=== PATIENT | male | born 1980 | race Caucasian/White ===

== ENCOUNTER 2018-08-17 09:27 | Outpatient (CLI) | payer OTHER, MEDICAID | END 2018-08-17 09:28 | disposition critical access hospital (66) | LOC: EMS 09:27 | PROVIDERS: ATTEND Surgery | DX: R09.89 Other specified symptoms and signs involving the circulatory and respiratory systems (principal) | CPT/HCPCS: A0425; A0427 ==

== ENCOUNTER 2018-08-17 09:45 | Emergency (ER) | payer OTHER, MEDICAID ==
[2018-08-17 10:14] LABS: BASOPHILS % (AUTO) 0.5 %; EOSINOPHILS # (AUTO) 0.3 10^3/uL (0.0-0.7); EOSINOPHILS % (AUTO) 4.9 %; HGB - HEMOGLOBIN 14.1 g/dL (14.0-18.0); LYMPHOCYTES # (AUTO) 1.6 10^3/uL (1.5-3.5); LYMPHOCYTES % (AUTO) 22.7 %; MEAN CORPUSCULAR HEMOGLOBIN 32.6 pg (27.0-31.0); MEAN CORPUSCULAR HGB CONC 35.2 g/dL (32.0-36.0); MEAN CORPUSCULAR VOLUME 92.8 fL (80.0-94.0); MONOCYTES # (AUTO) 0.6 10^3/uL (0.0-1.0); MONOCYTES % (AUTO) 8.9 %; NEUTROPHILS # (AUTO) 4.3 10^3/uL (1.5-6.6); PLT - PLATELET COUNT 244 10^3/uL (130-450); RED BLOOD COUNT 4.31 10^6/uL (4.70-6.10); RED CELL DISTRIBUTION WIDTH 12.8 % (12.0-15.0); WHITE BLOOD COUNT 6.9 x10^3/uL (4.8-10.8)
[2018-08-17 10:24] LABS: ALBUMIN 4.1 g/dL (3.2-5.5); ALBUMIN/GLOBULIN RATIO 1.4 (1.0-2.2); BILIRUBIN,TOTAL 0.9 mg/dL (0.2-1.0); CALCIUM 8.8 mg/dL (8.5-10.3); CREATININE 0.9 mg/dL (0.6-1.2); TOTAL PROTEIN 7.1 g/dL (6.7-8.2)
[2018-08-17] MEDS ORDERED: LISINOPRIL 5 MG TABLET PO STA (10:30)
--- NOTE | 2018-08-17 10:33 | ED Physician Documentation ---
History of Present Illness - Stated complaint Stated Complaint: HIGH BLOOD PRESSURE - Chief complaint Chief Complaint: Cardiac - History obtained from History obtained from: Patient - History of Present Illness Timing: How many weeks ago (2) - Additonal information Additional information: 37-year-old male has had issue with his blood pressure being elevated in his doctor's office and he has been able to control this by controlling his breathing. This past 2 weeks he has not been able to get his blood pressure under control and he has been experiencing some palpitations in his chest that he can feel his heart beating. He denies any pain in his chest. He states that he has been measuring his blood pressures and has had diastolics in the 110 range on a regular basis. This morning his blood pressure was elevated and he took carvedilol 6.25 mg and when he arrived to work had his blood pressure checked it was elevated and the people at the [employer] insisted he come to the emergency department for evaluation. The patient denies excessive salt load does state that he has been trying to exercise with walking and he denies any excessive use of alcohol. Review of Systems Constitutional: denies: Fever Eyes: denies: Decreased vision Ears: denies: Ear pain Nose: denies: Congestion Throat: denies: Sore throat Cardiac: reports: Palpitations. denies: Chest pain / pressure Respiratory: denies: Dyspnea, Cough GI: denies: Abdominal Pain, Nausea, Vomiting : denies: Dysuria, Frequency Skin: denies: Rash Musculoskeletal: denies: Neck pain, Back pain PD PAST MEDICAL HISTORY - Past Surgical History HEENT: Tonsil/Adenoidectomy - Present Medications Home Medications: Ambulatory Orders Medication Instructions Recorded Confirmed Carvedilol 08/17/18 Lisinopril 10 mg PO DAILY #20 tablet 08/17/18 - Allergies Allergies/Adverse Reactions: Allergies Allergy/AdvReac Type Severity Reaction Status Date / Time Sulfa (Sulfonamide Allergy Rash Verified 08/17/18 09:52 Antibiotics) - Social History Does the pt smoke?: No Smoking Status: Never smoker Does the pt drink ETOH?: Yes Does the pt have substance abuse?: No - Immunizations Immunizations are current?: Yes PD ED PE NORMAL - Vitals Vital signs reviewed: Yes (hypertension marked diastolic and systolic ) - General General: Alert and oriented X 3, No acute distress, Well developed/nourished - HEENT HEENT: Atraumatic, PERRL, EOMI - Neck Neck: Supple, no meningeal sign, No bony TTP - Cardiac Cardiac: RRR, No murmur - Respiratory Respiratory: No respiratory distress, Clear bilaterally - Abdomen Abdomen: Soft, Non tender - Back Back: No CVA TTP, No spinal TTP - Derm Derm: Normal color, Warm and dry, No rash - Extremities Extremities: No deformity, No edema - Neuro Neuro: Alert and oriented X 3, steward/stewardess tourist class 2-12 intact, No motor deficit, No sensory deficit, Normal speech Eye Opening: Spontaneous Motor: Obeys Commands Verbal: Oriented GCS Score: 15 - Psych Psych: Normal mood, Normal affect Results - Vitals Vitals: Vital Signs - 24 hr 08/17/18 08/17/18 09:45 10:03 Temperature 37.1 C Heart Rate 69 77 Respiratory 15 15 Rate Blood Pressure 186/128 H 178/108 H O2 Saturation 100 99 Oxygen O2 Source Room air - EKG (time done) 1005 Rate: Rate (enter#) (63) QRS: LVH Ischemia: Normal ST segments Compare to prior EKG: Old EKG unavailable Computer interpretation: Agree with computer - Labs Labs: Laboratory Tests 08/17/18 08/17/18 08/17/18 10:09 10:09 10:09 WBC 6.9 RBC 4.31 L Hgb 14.1 Hct 40.0 L MCV 92.8 MCH 32.6 H MCHC 35.2 RDW 12.8 Plt Count 244 MPV 8.0 Neut # (Auto) 4.3 Lymph # (Auto) 1.6 [place] # (Auto) 0.6 Eos # (Auto) 0.3 Baso # (Auto) 0.0 Absolute Nucleated RBC 0.00 Nucleated RBC % 0.0 Sodium 136 Potassium 4.3 Chloride 105 Carbon Dioxide 24 Anion Gap 7.0 BUN 17 Creatinine 0.9 Estimated GFR (MDRD) 96 Glucose 112 H Calcium 8.8 Total Bilirubin 0.9 AST 24 ALT 30 Alkaline Phosphatase 40 L Troponin I < 0.04 Total Protein 7.1 Albumin 4.1 Globulin 3.0 Albumin/Globulin Ratio 1.4 Lipase 30 - Rads (name of study) 2 veiw chest Radiology: Prelim report reviewed (Impression: Normal two-view chest radiography.), EMP read indepedently, See rad report Procedures - IVC sono (time) 1025 Bedside IVC sono: IVC measures (cm) (1.47), Euvolemia PD MEDICAL DECISION MAKING - ED course Complexity details: reviewed results, re-evaluated patient, considered differential, d/w patient ED course: 37 y/o male with hypertension is hypertensive this morning and symptomatic. He has normal volume and Lisinopril is administered. - Sepsis Event Vital Signs: Vital Signs - 24 hr 08/17/18 08/17/18 09:45 10:03 Temperature 37.1 C Heart Rate 69 77 Respiratory 15 15 Rate Blood Pressure 186/128 H 178/108 H O2 Saturation 100 99 Oxygen O2 Source Room air Departure - Departure Disposition: 01 Home, Self Care Clinical Impression: Hypertension Qualifiers: Hypertension type: essential hypertension Qualified Code(s): I10 - Essential (primary) hypertension Condition: Stable Instructions: ED Hypertension New Begin Tx Follow-Up: [facility] [Provider Group] Prescriptions: Lisinopril 10 mg PO DAILY #20 tablet
--- NOTE | 2018-08-17 10:52 | XRAY Report ---
Reason: palpitations, HTN Procedure Date: 08/17/2018 Accession Number: [id number] / [id number] Procedure: XR - Chest 2 View X-Ray CPT Code: 49560 FULL RESULT: EXAM: CHEST RADIOGRAPHY EXAM DATE: 08/17/2018 10:35 AM. CLINICAL HISTORY: Palpitations, HTN. COMPARISON: None. TECHNIQUE: 2 views. FINDINGS: Lungs/Pleura: No focal opacities evident. No pleural effusion. No pneumothorax. Normal volumes. Mediastinum: Heart and mediastinal contours are unremarkable. Other: None. IMPRESSION: Normal 2-view chest radiography. RADIA
[2018-08-17 11:50] VITALS: BP 166/106
== END 2018-08-17 11:50 | disposition home or self-care (01) ==
LOC: ED 09:45
DX: I10 Essential (primary) hypertension (principal)
CPT/HCPCS: 36415; 71046; 80053; 83690; 84484; 85025; 93005; 99284; A9270

== ENCOUNTER 2021-05-24 18:12 | Emergency (ER) | payer OTHER ==
--- NOTE | 2021-05-24 19:49 | XRAY Report ---
PROCEDURE: Shoulder 3 View RT INDICATIONS: injury struck versus trailer TECHNIQUE: 3 views of the shoulder were acquired. COMPARISON: None. FINDINGS: Bones: No acute fractures or dislocations. No suspicious bony lesions. Visualized ribs appear inta ct. Soft tissues: No suspicious soft tissue calcifications. IMPRESSION: Right shoulder without acute fracture or dislocation. If there is persistent clinical concern for a radiographically occult fracture, recommend immobilizat ion and repeat imaging in 10 to 14 days. Reviewed by: Ancelmo Barrett MD on 05/24/2021 7:48 PM PDT Approved by: Ancelmo Barrett MD on 05/24/2021 7:48 PM PDT Station ID: [id number]
--- NOTE | 2021-05-24 20:10 | ED Physician Documentation ---
History of Present Illness - Stated complaint Stated Complaint: RT ARM INJURY - Chief complaint Chief Complaint: Trauma Ext - Additonal information Additional information: 40-year-old male presents the ER with acute right shoulder pain. 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 One of the pressure valves became an released and when he unhooked the trailer it swung his arm back forcefully. Initially he did not think much of it but about 15 minutes later he began having a deep ache in his right shoulder radiating to the hand. No history of previous injury. Now pain significantly limits movement. No deformity. He is right-hand dominant. This is a labor and industries claim. Review of Systems Constitutional: reports: Reviewed and negative Nose: reports: Reviewed and negative Throat: reports: Reviewed and negative Cardiac: reports: Reviewed and negative Respiratory: reports: Reviewed and negative GI: reports: Reviewed and negative : reports: Reviewed and negative Musculoskeletal: reports: Extremity pain (Right shoulder) PD PAST MEDICAL HISTORY - Past Surgical History HEENT: Tonsil/Adenoidectomy - Present Medications Home Medications: Ambulatory Orders Medication Instructions Recorded Confirmed carvediloL [Carvedilol] 08/17/18 lisinopriL [Lisinopril] 10 mg PO DAILY #20 tablet 08/17/18 HYDROcod/ACETAM 5/325 [[place] 5/325] 1 tablet PO BID PRN #20 tablet 05/24/21 Ibuprofen [Motrin] 600 mg PO Q6H PRN #30 tab 05/24/21 - Allergies Allergies/Adverse Reactions: Allergies Allergy/AdvReac Type Severity Reaction Status Date / Time Sulfa (Sulfonamide Allergy Rash Verified 05/24/21 18:30 Antibiotics) - Social History Does the pt smoke?: No Smoking Status: Never smoker Does the pt drink ETOH?: Yes Does the pt have substance abuse?: No - Immunizations Immunizations are current?: Yes PD ED PE EXPANDED - General General: Alert, In Pain - Extremities Extremities: Right shoulder (tenderness with palpation right proximal biceps. Patient has a positive drop arm on the right side as well as a positive Jurgenson's. Patient able to abduct the arm to 90 degrees.) Results - Vitals Vitals: Vital Signs - 24 hr 05/24/21 05/24/21 18:30 19:36 Temperature 36.8 C 99.6 C H Heart Rate 63 75 Respiratory 16 18 Rate Blood Pressure 144/87 H 145/85 H O2 Saturation 100 99 Oxygen O2 Source Room air - Rads (name of study) right shoulder Radiology: Final report received (No acute fracture or dislocation.) PD MEDICAL DECISION MAKING - ED course Complexity details: reviewed results, re-evaluated patient, d/w patient ED course: 40-year-old male presents to the ER with acute right shoulder pain after his arm was forcefully extended backwards when a pressurized tanker trailer opened up. No obvious fracture but the exam is most consistent with a rotator cuff tear. Patient will be placed in a sling given ibuprofen and a limited amount of narcotic. 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 Will recommend follow-up with orthopedics. Emergent return precautions discussed. I am prescribing a short course of short-acting opioid pain medication for this patient. I have reviewed the patients JUNIOR STAFF ACCOUNTANT and no concerning findings were noted. I have discussed that the opioids are for short term therapy only, and will not be refilled from the ED. Departure - Departure Disposition: 01 Home, Self Care Clinical Impression: Right rotator cuff tendinitis Condition: Stable Record reviewed to determine appropriate education?: Yes Instructions: Rotator Cuff Injury Follow-Up: [facility] [Provider Group] Prescriptions: Ibuprofen [Motrin] 600 mg PO Q6H PRN #30 tab PRN Reason: Pain HYDROcod/ACETAM 5/325 [[place] 5/325] 1 tablet PO BID PRN #20 tablet PRN Reason: Pain Comments: Darrell you were seen in the ER today for right shoulder pain. The x-ray does not show any obvious fractures but your exam is consistent with a rotator cuff tear. Most rotator cuff injuries will resolve by simply resting the arm taking appropriate ibuprofen and pain medication. I would like you to schedule follow- up with your primary care provider or the orthopedic surgeons for reevaluation within 1 week. 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 It is important that you follow-up with your primary care provider, the orthopedic surgeon or a walk-in provider in 7 days. If your symptoms are not improving a longer release from work will need to be written. However until then you are not cleared for return to duty until the 21st at the earliest. I do recommend that you ice the shoulder for 10 minutes 3 times a day and take ibuprofen with food for pain. For severe pain I have prescribed a very limited amount of hydrocodone. I am prescribing a short course of narcotic pain medication for you. These are potentially dangerous and addictive medications that should be used carefully. These medications may constipate you. Take an zvvz-gjh-kkfuxar stool softener (docusate) twice daily with plenty of water while taking these medications. If you go 24 hours without a bowel movement, take [id number] miralax, per package instructions. Do not drink or drive while taking these medications. If you received narcotic or sedating medications while in the emergency department, do not drive for 24 hours. Store this medication in a safe, secure place and out of reach of children. It is a violation of federal law to give or sell this medication to another person or to use in a manner other than prescribed. The ED will not refill narcotic prescriptions, including prescriptions lost or stolen. To dispose of unwanted medications: 1. [facility] at [address] in [place] has a medication drop box. They accept prescription medications (in pill form) Sunday through Sunday 9:00 a.m. to 5:00 p.m. 2. The [facility] [employer] accepts prescription medications (in pill form only) for disposal year round. Call for more information. 3. Contact the [facility] for the next COUNT INCLUDES THE [facility] sponsored prescription drug collection event. , [phone], or [phone]; Note that many narcotic pain relievers also contain Tylenol/acetaminophen. Please ensure that your total dose of acetaminophen from all sources does not exceed 3 g (3000 mg) per day.
[2021-05-24] MEDS: IBUPROFEN 600 MG TABLET PO STA (20:13)
[2021-05-24] MEDS: HYDROmorphone 1 MG/ML CARPUJECT IM STA (20:13)
[2021-05-24 20:40] VITALS: BP 146/84
== END 2021-05-24 20:40 | disposition home or self-care (01) ==
LOC: ED 18:12
DX: S46.011A Strain of muscle(s) and tendon(s) of the rotator cuff of right shoulder, initial encounter (principal); W20.8XXA Other cause of strike by thrown, projected or falling object, initial encounter; Y93.89 Activity, other specified; Y99.0 Civilian activity done for income or pay
CPT/HCPCS: 1040M; 73030; 96372; 99283; A9270; J1170

== ENCOUNTER 2022-02-28 15:56 | Emergency (ER) | payer MEDICAID, OTHER ==
[2022-02-28 16:30] LABS: BASOPHILS % (AUTO) 0.4 %; EOSINOPHILS # (AUTO) 0.2 10^3/uL (0.0-0.7); EOSINOPHILS % (AUTO) 2.8 %; HCT - HEMATOCRIT 44.9 % (42.0-52.0); HGB - HEMOGLOBIN 15.9 g/dL (14.0-18.0); LYMPHOCYTES # (AUTO) 1.3 10^3/uL (1.5-3.5); LYMPHOCYTES % (AUTO) 19.5 %; MEAN CORPUSCULAR HEMOGLOBIN 32.7 pg (27.0-31.0); MEAN CORPUSCULAR HGB CONC 35.4 g/dL (32.0-36.0); MEAN CORPUSCULAR VOLUME 92.4 fL (80.0-94.0); MEAN PLATELET VOLUME 9.6 fL (7.4-11.4); MONOCYTES # (AUTO) 0.9 10^3/uL (0.0-1.0); MONOCYTES % (AUTO) 13.9 %; NEUTROPHILS # (AUTO) 4.2 10^3/uL (1.5-6.6); NEUTROPHILS % (AUTO) 63.1 %; PLT - PLATELET COUNT 238 10^3/uL (130-450); RED BLOOD COUNT 4.86 10^6/uL (4.70-6.10); RED CELL DISTRIBUTION WIDTH 12.1 % (12.0-15.0); WHITE BLOOD COUNT 6.7 x10^3/uL (4.8-10.8)
[2022-02-28 16:31] LABS: BILIRUBIN,URINE NEGATIVE (NEGATIVE); GLUCOSE, URINE (UA) NEGATIVE (NEGATIVE); KETONES,URINE (UA) NEGATIVE (NEGATIVE); LEUKOCYTE ESTERASE, URINE NEGATIVE (NEGATIVE); NITRITE,URINE NEGATIVE (NEGATIVE); OCCULT BLOOD,URINE NEGATIVE (NEGATIVE); PROTEIN,URINE NEGATIVE (NEGATIVE); UROBILINOGEN,URINE 0.2 (NORMAL) E.U./dL (NORMAL)
[2022-02-28 16:32] LABS: CLARITY,URINE CLEAR (CLEAR)
[2022-02-28 16:43] LABS: ALBUMIN 4.6 g/dL (3.2-5.5); ALBUMIN/GLOBULIN RATIO 1.4 (1.0-2.2); CALCIUM 9.4 mg/dL (8.5-10.3); CREATININE 1.2 mg/dL (0.6-1.2); POTASSIUM 4.1 mmol/L (3.5-5.0)
--- NOTE | 2022-02-28 18:07 | ED Physician Documentation ---
PD HPI NVD - Stated complaint Stated Complaint: ABD PX,DIARRHEA - Chief complaint Chief Complaint: Abd Pain - History obtained from History obtained from: Patient - History of Present Illness Timing - onset: How many days ago (3) Timing - duration: Days (3) Timing - details: Abrupt onset (Initially with diarrhea's multiple times with watery stool and then development of upper to left abdominal pain that has persisted and become severe in waves.), Still present Associated symptoms: Abdominal pain, Loss of appetite (pain with eating), Other (diarrhea. Nausea without vomiting.). No: Fever, Dysuria Contributing factors: No: Sick contact, Bad food, Travel, Recent antibiotics Improved by: No: Eating, BM Worsened by: Eating Similar symptoms before: Has not had sx before Recently seen: Not recently seen Review of Systems Constitutional: denies: Fever, Chills Nose: denies: Rhinorrhea / runny nose, Congestion Throat: denies: Sore throat Cardiac: denies: Chest pain / pressure Respiratory: denies: Cough GI: reports: Abdominal Pain, Nausea, Diarrhea (frequent and watery). denies: Vomiting, Constipation, Bloody / black stool : denies: Dysuria Musculoskeletal: denies: Back pain Neurologic: reports: Generalized weakness. denies: Focal weakness, Numbness, Near syncope PD PAST MEDICAL HISTORY - Past Medical History Cardiovascular: None Respiratory: None Endocrine/Autoimmune: None - Past Surgical History Past Surgical History: Yes HEENT: Tonsil/Adenoidectomy - Present Medications Home Medications: Ambulatory Orders Medication Instructions Recorded Confirmed Ibuprofen [Motrin] 600 mg PO Q6H PRN #30 tab 05/24/21 02/28/22 Amlodipine Besylate [Norvasc] 10 mg PO DAILY 02/28/22 02/28/22 Escitalopram [Lexapro] 15 mg PO DAILY 02/28/22 02/28/22 Famotidine 20 mg PO DAILY 02/28/22 02/28/22 HYDROcod/ACETAM 5/325 [[place] 5/325] 1 ea PO Q6H PRN #14 tablet 02/28/22 Lisinopril [Zestril] 40 mg PO DAILY 02/28/22 02/28/22 Ondansetron Odt [Zofran] 4 mg TL Q6H PRN #10 tablet 02/28/22 - Allergies Allergies/Adverse Reactions: Allergies Allergy/AdvReac Type Severity Reaction Status Date / Time Sulfa (Sulfonamide Allergy Rash Verified 02/28/22 16:05 Antibiotics) - Social History Does the pt smoke?: No Smoking Status: Never smoker Does the pt drink ETOH?: Yes Does the pt have substance abuse?: No - Immunizations Immunizations are current?: Yes PD ED PE NORMAL - Vitals Vital signs reviewed: Yes - General General: Alert and oriented X 3, Well developed/nourished, Other (He appears in considerable distress and worse in waves.) - Neck Neck: Supple, no meningeal sign, No adenopathy - Cardiac Cardiac: RRR, No murmur - Respiratory Respiratory: Clear bilaterally - Abdomen Abdomen: Soft, Non distended, No organomegaly, Other (Tender in the epigastric to left upper quadrant area with local guarding and percussion tenderness. Lower abdomen not tender. No rebound.). No: Normal bowel sounds (decreased) - Male Male : Deferred - Rectal Rectal: Deferred - Back Back: No CVA TTP - Derm Derm: Normal color, Warm and dry - Neuro Neuro: Alert and oriented X 3, No motor deficit, Normal speech Results - Vitals Vitals: Vital Signs - 24 hr 02/28/22 02/28/22 02/28/22 16:06 16:11 20:11 Temperature 37.2 C 37.2 C 36.9 C Heart Rate 83 83 69 Respiratory 20 20 22 Rate Blood Pressure 163/103 H 163/103 H 168/106 H O2 Saturation 99 94 98 02/28/22 22:00 Temperature Heart Rate 86 Respiratory 16 Rate Blood Pressure 166/108 H O2 Saturation 98 Oxygen O2 Source Room air - Labs Labs: Laboratory Tests 02/28/22 02/28/22 02/28/22 16:20 16:23 16:23 WBC 6.7 RBC 4.86 Hgb 15.9 Hct 44.9 MCV 92.4 MCH 32.7 H MCHC 35.4 RDW 12.1 Plt Count 238 MPV 9.6 Neut # (Auto) 4.2 Lymph # (Auto) 1.3 L [place] # (Auto) 0.9 Eos # (Auto) 0.2 Baso # (Auto) 0.0 Absolute Nucleated RBC 0.00 Nucleated RBC % 0.0 Sodium 135 Potassium 4.1 Chloride 101 Carbon Dioxide 24 Anion Gap 10.0 BUN 13 Creatinine 1.2 Estimated GFR (MDRD) 67 L Glucose 100 Calcium 9.4 Total Bilirubin 1.0 AST 21 ALT 23 Alkaline Phosphatase 42 Total Protein 8.0 Albumin 4.6 Globulin 3.4 Albumin/Globulin Ratio 1.4 Lipase 29 Urine Color YELLOW Urine Clarity CLEAR Urine pH 6.0 Ur Specific [place] 1.020 Urine Protein NEGATIVE Urine Glucose (UA) NEGATIVE Urine Ketones NEGATIVE Urine Occult Blood NEGATIVE Urine Nitrite NEGATIVE Urine Bilirubin NEGATIVE Urine Urobilinogen 0.2 (NORMAL) Ur Leukocyte Esterase NEGATIVE Ur Microscopic Review NOT INDICATED Urine Culture Comments NOT INDICATED PD MEDICAL DECISION MAKING - ED course Complexity details: reviewed results (CT showoing ileitis. No obstruction. ), re-evaluated patient (Lessened pain but still hurting quite a bit with sips of water. No vomiting but still intractable pain. Has had several doses of pain medicine. Can talk with hospitalist. ), considered differential (likely viral GE but having considerable pain, so concern for other process, diverticulitis, SBO, abscess, etc.), d/w customer service sales consultant (Consulted with Dr. Carter Romano who felt the patient did not meet admission criteria even on grounds of intractable pain and poor oral intake. We will see how he does the patient does with further IV fluids and medication.) Departure - Departure Disposition: 01 Home, Self Care Clinical Impression: Ileitis Diarrhea Qualifiers: Diarrhea type: presumed infectious Qualified Code(s): R19.7 - Diarrhea, unspecified Abdominal pain Qualifiers: Abdominal location: upper abdomen, unspecified Qualified Code(s): R10.10 - Upper abdominal pain, unspecified Condition: Stable Record reviewed to determine appropriate education?: Yes Instructions: ED Diet Vomiting Diarrhea Follow-Up: SHANT RAUSCH DO [Primary Care Provider] - Prescriptions: HYDROcod/ACETAM 5/325 [[place] 5/325] 1 ea PO Q6H PRN #14 tablet PRN Reason: Pain Ondansetron Odt [Zofran] 4 mg TL Q6H PRN #10 tablet PRN Reason: Nausea / Vomiting Comments: Small frequent fluids and electrolyte solution such as Gatorade or so. Use ond ansetron if needed for nausea. Tylenol every 4-6 hours if needed for pain or hydrocodone if needed for worse pain. You can try Imodium for diarrhea. Our hospitalist did not feel that you met admission criteria so we will try seeing how you do at home. Use the above medications. Return if not improving well in the next 12 to 24 hours. Discharge Date/Time: 02/28/22 22:07
[2022-02-28] MEDS ORDERED: KETOROLAC 30 MG/ML VIAL IVP STA (18:18)
[2022-02-28] MEDS ORDERED: SODIUM CHLORIDE 0.9% 1,000 ML IV STA ×2 (18:18→19:40)
[2022-02-28] MEDS ORDERED: HYDROmorphone 1 MG/ML CARPUJECT IVP STA ×2 (18:18→19:25)
[2022-02-28] MEDS ORDERED: ONDANSETRON 4 MG/2 ML VIAL IVP STA (18:18)
[2022-02-28] MEDS ORDERED: IOVERSOL 320 100 ML VIAL IVP ONE ×2 (18:47→19:01)
--- NOTE | 2022-02-28 19:15 | CT Report ---
PROCEDURE: Abdomen/Pelvis W INDICATIONS: left upper abd pain 3 days, diarrhea CONTRAST: IV CONTRAST: Optiray 320 ml: 100 PO CONTRAST: *NO PO CONTRAST TECHNIQUE: After the administration of intravenous contrast, 5 mm thick sections acquired from the diaphragms to the symphysis. 5 mm thick coronal and sagittal reformats were acquired. For radiation dose reducti on, the following was used: automated exposure control, adjustment of mA and/or kV according to ramiro ent size. COMPARISON: None FINDINGS: Image quality: Excellent. ABDOMEN: Lung bases: Lung bases are clear. Heart size is normal. Solid organs: Liver and spleen are normal in size and enhancement. Gallbladder is unremarkable. Bi liary system is non dilated. Pancreas enhances normally. No adrenal nodules. Kidneys demonstrate n ormal size and enhancement, without hydronephrosis. Peritoneum and bowel: There is thickening and edema of loops of ileum. There is mild sigmoid divertic ulosis. No other inflamed loops of bowel are identified. Nodes and vessels: No retroperitoneal or me senteric adenopathy by size criteria. Aorta and inferior vena cava are normal in size. Miscellaneous: No ventral hernias. PELVIS: Genitourinary: Mild diffuse bladder wall thickening. Miscellaneous: No inguinal hernias or adenopathy. Bones: No suspicious bony lesions. No vertebral body compression fractures. IMPRESSION: 1. Multiple thickened, mildly edematous loops of ileum, consistent with ileitis. In this age group, i nfectious or inflammatory ileitis is more likely than ischemic ileitis. 2. Mild diffuse bladder wall thickening, nonspecific. Reviewed by: Rohit Keita MD on 02/28/2022 7:13 PM PDT Approved by: Rohit Keita MD on 02/28/2022 7:13 PM PDT Station ID: [id number]
[2022-02-28] MEDS ORDERED: DIPHENOX/ATROPINE 2.5/0.025 MG TABLET PO STA (19:44)
[2022-02-28] MEDS ORDERED: oxyCODONE 5 MG TABLET PO STA (21:14)
[2022-02-28] MEDS ORDERED: ONDANSETRON ODT 4 MG Prepack 2 TL PRN (21:52)
[2022-02-28] MEDS ORDERED: oxyCODONE/ACET 5/325 Prepack 4 PO STA (21:52)
--- NOTE | 2022-02-28 21:55 | ED Physician Documentation ---
ED Addendum - Addendum Addendum: 2104 - Patient signed out to me by Dr. Tran to follow-up after repeated doses of pain medication and fluids. A Dr. Tran had attempted to admit the patient but admission was declined and recommended to trial another round of medication. On my evaluation patient still has tenderness to the left upper quadrant and appears somewhat uncomfortable. He did state that moving around makes his pain worse and he did just get up to go to the bathroom. He does not have an acute abdomen however. I had another conversation with the night hospitalist Dr. Roche. He again does not feel that the patient needs to be admitted as his labs and vital signs are stable. He recommends that the patient continue with supportive management.He does not feel that evaluating the patient at bedside will change his recommendations and has already offered his recommendations to both Dr. Tran and myself. 2151 - Patient states that his pain is still present but is somewhat better than when he arrived and appears to be tolerable. He was able to pass a p.o. challenge. I did discuss that at this time he does not meet criteria to be admitted to the hospital and he is comfortable with trying to manage his symptoms as an outpatient. Prescriptions were provided by Dr. Tran and sent to his pharmacy. I did provide medications for him to use tonight as pharmacies are closed. Patient and his fiance at bedside are aware of strict return precautions should he have any worsening symptoms. Departure - Departure Disposition: 01 Home, Self Care Clinical Impression: Ileitis Diarrhea Qualifiers: Diarrhea type: presumed infectious Qualified Code(s): R19.7 - Diarrhea, unspecified Abdominal pain Qualifiers: Abdominal location: upper abdomen, unspecified Qualified Code(s): R10.10 - Upper abdominal pain, unspecified Condition: Stable Instructions: ED Diet Vomiting Diarrhea Follow-Up: SHANT RAUSCH DO [Primary Care Provider] - Prescriptions: HYDROcod/ACETAM 5/325 [[place] 5/325] 1 ea PO Q6H PRN #14 tablet PRN Reason: Pain Ondansetron Odt [Zofran] 4 mg TL Q6H PRN #10 tablet PRN Reason: Nausea / Vomiting Comments: Small frequent fluids and electrolyte solution such as Gatorade or so. Use ondansetron if needed for nausea. Tylenol every 4-6 hours if needed for pain or hydrocodone if needed for worse pain. You can try Imodium for diarrhea. Our hospitalist did not feel that you met admission criteria so we will try seeing how you do at home. Use the above medications. Return if not improving well in the next 12 to 24 hours. Discharge Date/Time: 02/28/22 22:07
[2022-02-28 22:06] VITALS: BP 166/108
== END 2022-02-28 22:07 | disposition home or self-care (01) ==
LOC: ED 15:56
DX: K52.9 Noninfective gastroenteritis and colitis, unspecified (principal)
CPT/HCPCS: 36415; 74177; 80053; 81003; 81599; 83690; 85025; 87493; 96374; 96375; 96376; 99283; 99284; A9270; J1170; Q9967; 81001; 87045; 87046; 87086

== ENCOUNTER 2024-04-19 12:15 | Emergency (ER) | payer OTHER ==
[2024-04-19 12:28] VITALS: O2SAT 100
[2024-04-19 13:03] LABS: BASOPHILS % (AUTO) 0.3 %; EOSINOPHILS # (AUTO) 0.3 10^3/uL (0.0-0.7); HCT - HEMATOCRIT 44.5 % (42.0-52.0); HGB - HEMOGLOBIN 15.2 g/dL (14.0-18.0); LYMPHOCYTES # (AUTO) 1.5 10^3/uL (1.5-3.5); LYMPHOCYTES % (AUTO) 23.6 %; MEAN CORPUSCULAR HEMOGLOBIN 31.6 pg (27.0-31.0); MEAN CORPUSCULAR HGB CONC 34.2 g/dL (32.0-36.0); MEAN CORPUSCULAR VOLUME 92.5 fL (80.0-94.0); MEAN PLATELET VOLUME 9.8 fL (7.4-11.4); MONOCYTES # (AUTO) 0.8 10^3/uL (0.0-1.0); MONOCYTES % (AUTO) 11.9 %; NEUTROPHILS # (AUTO) 3.8 10^3/uL (1.5-6.6); NEUTROPHILS % (AUTO) 58.9 %; PLT - PLATELET COUNT 259 10^3/uL (130-450); RED BLOOD COUNT 4.81 10^6/uL (4.70-6.10); RED CELL DISTRIBUTION WIDTH 11.9 % (12.0-15.0); WHITE BLOOD COUNT 6.4 x10^3/uL (4.8-10.8)
[2024-04-19 13:20] LABS: TROPONIN I HIGH SENSITIVITY 3.6 ng/L (2.3-19.7)
[2024-04-19 13:22] LABS: ALBUMIN 4.3 g/dL (3.2-5.5); ALBUMIN/GLOBULIN RATIO 1.5 (1.0-2.2); BILIRUBIN,TOTAL 0.5 mg/dL (0.2-1.0); CALCIUM 9.9 mg/dL (8.5-10.3); CREATININE 1.1 mg/dL (0.6-1.3); POTASSIUM 3.9 mmol/L (3.5-4.5); TOTAL PROTEIN 7.1 g/dL (6.4-8.9)
--- NOTE | 2024-04-19 13:30 | XRAY Report ---
PROCEDURE: Chest 1V INDICATIONS: Chest Pain TECHNIQUE: One view of the chest was acquired. COMPARISON: 08/17/2018 FINDINGS: Surgical changes and devices: None. Lungs and pleura: No pleural effusions or pneumothorax. Lungs are clear. Mediastinum: Mediastinal contours appear normal. Heart size is normal. Bones and chest wall: No suspicious bony lesions. Overlying soft tissues appear unremarkable. IMPRESSION: No acute cardiopulmonary process. Reviewed by: Ryan Valdez MD on 04/19/2024 12:29 PM [facility] Approved by: Ryan Valdez MD on 04/19/2024 12:29 PM [facility] Station ID: [id number]
--- NOTE | 2024-04-19 15:02 | ED Physician Documentation ---
History of Present Illness - Stated complaint Stated Complaint: CHEST PX,DIZZY,SOB - Chief complaint Chief Complaint: Cardiac - History obtained from History obtained from: Patient - History of Present Illness Timing: How many days ago (several days) Pain level max: 4 Pain level now: 3 - Additonal information Additional information: Patient is a 43-year-old male who presents to the emergency department with chest tightness. He states he feels like he has nerve pain going down the left arm. He states he feels like it is harder to breathe when he lies down flat. He states that he did use inhalers when he was young but has not needed them as an adult. He does not smoke or vape but does use smokeless tobacco. No change with exertion. No recent travel. No calf swelling or tenderness. No history of acute coronary syndrome. No fevers, cough or congestion. He states he did have a slight viral illness earlier in the week. Review of Systems Constitutional: denies: Fever, Chills Cardiac: denies: Palpitations Respiratory: denies: Cough, Hemoptysis, Wheezing GI: denies: Nausea, Vomiting, Diarrhea Skin: denies: Rash PD PAST MEDICAL HISTORY - Past Medical History Cardiovascular: None Respiratory: None Endocrine/Autoimmune: None Psych: Anxiety - Past Surgical History Past Surgical History: Yes HEENT: Tonsil/Adenoidectomy - Present Medications Home Medications: Ambulatory Orders Medication Instructions Recorded Confirmed Ibuprofen [Motrin] 600 mg PO Q6H PRN #30 tab 05/24/21 02/28/22 Amlodipine Besylate [Norvasc] 10 mg PO DAILY 02/28/22 02/28/22 Escitalopram [Lexapro] 15 mg PO DAILY 02/28/22 02/28/22 Famotidine 20 mg PO DAILY 02/28/22 02/28/22 HYDROcod/ACETAM 5/325 [Henderson 5/325] 1 ea PO Q6H PRN #14 tablet 02/28/22 Lisinopril [Zestril] 40 mg PO DAILY 02/28/22 02/28/22 Ondansetron Odt [Zofran] 4 mg TL Q6H PRN #10 tablet 02/28/22 - Allergies Allergies/Adverse Reactions: Allergies Allergy/AdvReac Type Severity Reaction Status Date / Time Sulfa (Sulfonamide Allergy Rash Verified 04/19/24 12:20 Antibiotics) - Social History Does the pt smoke?: No Smoking Status: Never smoker Does the pt drink ETOH?: Yes Does the pt have substance abuse?: No - Immunizations Immunizations are current?: Yes PD ED PE NORMAL - Vitals Vital signs reviewed: Yes - General General: Alert and oriented X 3, No acute distress - HEENT HEENT: PERRL, Moist mucous membranes - Neck Neck: Supple, no meningeal sign - Cardiac Cardiac: RRR, No murmur, Strong equal pulses, Other (no chest wall tenderness) - Respiratory Respiratory: No respiratory distress, Clear bilaterally - Abdomen Abdomen: Soft, Non tender, Non distended - Derm Derm: Warm and dry - Extremities Extremities: No edema, No calf tenderness / cord - Neuro Neuro: Alert and oriented X 3 - Psych Psych: Normal mood, Normal affect Results - Vitals Vitals: Vital Signs - 24 hr 04/19/24 04/19/24 04/19/24 12:20 15:32 15:42 Temperature 37.2 C Heart Rate 69 70 74 Respiratory 17 18 16 Rate Blood Pressure 184/107 H 167/86 H O2 Saturation 100 100 Oxygen O2 Source Room air - EKG (time done) 1227 EKG releavant findings:: EKG personally interpreted by author of this note. Relevant findings are: Rate: Rate (enter#) (68) Rhythm: NSR [place]: Normal Intervals: Normal [place] QRS: Normal Ischemia: Normal ST segments - Labs Labs: Laboratory Tests 04/19/24 04/19/24 12:55 12:55 WBC 6.4 RBC 4.81 Hgb 15.2 Hct 44.5 MCV 92.5 MCH 31.6 H MCHC 34.2 RDW 11.9 L Plt Count 259 MPV 9.8 Neut # (Auto) 3.8 Lymph # (Auto) 1.5 [place]erry # (Auto) 0.8 Eos # (Auto) 0.3 Baso # (Auto) 0.0 Absolute Nucleated RBC 0.00 Nucleated RBC % 0.0 Sodium 140 Potassium 3.9 Chloride 105 Carbon Dioxide 29 Anion Gap 6.0 BUN 8 Creatinine 1.1 Estimated GFR (MDRD) 74 L Glucose 107 H Calcium 9.9 Total Bilirubin 0.5 AST 31 ALT 70 H Alkaline Phosphatase 54 Troponin I High Sens 3.6 Total Protein 7.1 Albumin 4.3 Globulin 2.8 Albumin/Globulin Ratio 1.5 Lipase 15 - Rads (name of study) cxr Relevant Findings:: Final report received, See rad report PD Medical Decision Making - ED course Complexity details: reviewed results, re-evaluated patient, considered differential (No ST elevation NV, no aortic dissection, no PE, no tension pneumothorax, no aortic aneurysm), d/w patient ED course: Patient with atypical chest pain, constant for 3 days. Negative high sensitivity troponin. Normal EKG. Normal chest x-ray. Was given albuterol treatment in the emergency department. No significant change with albuterol treatment. Unclear etiology of his symptoms, does not appear to be related to ACS, PE, pneumothorax, aortic dissection. Will continue supportive care and have him follow-up with his doctor for further care. Patient counseled regarding signs and symptoms for which I believe and urgent re-evaluation would be necessary. Patient with good understanding of and agreement to plan and is comfortable going home at this time This document was made in part using voice recognition software. While efforts are made to proofread this document, sound alike and grammatical errors may occur. Departure - Departure Disposition: 01 Home, Self Care Clinical Impression: Chest pain, atypical Condition: Good Instructions: ED Chest Pain Atypical Unkn Cause Follow-Up: BEVERLEY EWING MD [Primary Care Provider] - Within 1 week Comments: Your testing today does not show any acute abnormalities. Your heart testing is normal. Your chest x-ray and EKG are normal as well. Please follow-up with your doctor for further care. Please return if you worsen. Forms: PCP List Discharge Date/Time: 04/19/24 16:24
[2024-04-19] MEDS: ALBUTEROL NEB 2.5 MG/3 ML INH STA (15:29)
[2024-04-19 15:55] VITALS: BP 167/86
== END 2024-04-19 16:24 | disposition home or self-care (01) ==
LOC: ED 12:15
DX: R07.89 Other chest pain (principal); Z72.0 Tobacco use
CPT/HCPCS: 36415; 80053; 83690; 84484; 85025; 93005; 94640; 99283; 99284